=== PATIENT | female | born 1990 | race Caucasian/White ===

== ENCOUNTER 2020-12-24 10:36 | Emergency (ER) | payer OTHER ==
[~2020-12-24] VITALS: Ht 175.3 cm; Wt 90.7 kg
[~2020-12-24 10:36] MED LIST: CELEXA 20 MG TA20 MG; COLACE 100 MG100 MG; IBUPROFEN 600600 M1; IRON325; MACROBID 100 M100 M1 PO; NORCO 5-325 TA1 EACH; ONDANSETRON HCL4 M2 PO; PHENERGAN 25 MG25 M1 PO; TRAMADOL 50 MG50 MG; TRAMADOL 50 MG50 MG PO; TRINATE TABLET1 TAB; TUMS PO; ZANTAC 150MG T150 MG PO
[2020-12-24 11:04] LABS: URINE BILIRUBIN NEGATIVE (Negative); URINE BLOOD 2+ (Negative); URINE CLARITY CLEAR; URINE COLOR YELLOW; URINE GLUCOSE-RANDOM* NEGATIVE (Negative); URINE KETONES NEGATIVE (Negative); URINE LEUKOCYTES-REFLEX 1+ (Negative); URINE NITRITE-REFLEX NEGATIVE (Negative); URINE PROTEIN (DIPSTICK) NEGATIVE (Negative); URINE UROBILINOGEN 0.2 E.U./dl (0.2-1.0)
[2020-12-24 11:06] LABS: ABSOLUTE NEUTROPHILS 4.5 thou/uL (1.4-8.2); BASOPHILS 0.6 % (0.0-2.0); EOSINOPHILS 1.2 % (0.0-3.0); HEMATOCRIT 35.9 % (37.0-47.0); HEMOGLOBIN 12.2 gm/dL (12.0-15.0); MCH 30.3 pg (26.0-34.0); MCHC 34.1 g/dL (28.0-37.0); MCV 88.9 fL (80.0-100.0); MONOCYTES 5.9 % (1.0-8.0); PLATELET COUNT 360 thou/uL (150-400); POLYS 67.3 % (36.0-66.0); RBC 4.04 mil/uL (4.20-5.00); RDW 14.2 % (10.5-14.5); WBC 6.7 thou/uL (4.0-11.0)
[2020-12-24 11:16] LABS: CALCIUM 9.2 mg/dL (8.5-10.1); CREATININE 0.7 mg/dL (0.6-1.0); POTASSIUM 3.8 mmol/L (3.5-5.1)
[2020-12-24 11:22] LABS: ALBUMIN 4.4 g/dL (3.4-5.0); TOTAL BILIRUBIN 0.4 mg/dL (0.2-1.0)
[2020-12-24 11:25] LABS: CASTS None Seen /LPF (None Seen); SQUAMOUS 4-10 Moderate /LPF (0-3); URINE WBC-REFLEX None Seen /HPF (0-5)
[2020-12-24 11:26] LABS: BACTERIA-REFLEX 1-9 Few /HPF (None Seen); CRYSTALS None Seen /LPF (None Seen); URINE RBC None Seen /HPF (NONE SEEN)
[2020-12-24] MEDS ORDERED: OMEPRAZOLE40 MG PO (12:43)
[2020-12-24] MEDS ORDERED: CARAFATE 1 GM TA1 G1 PO (12:43)
[2020-12-24 12:44] VITALS: BP 122/79
== END 2020-12-24 13:01 | disposition home or self-care (01) ==
LOC: ER 10:36
PROVIDERS: Student in an Organized Health Care Education/Training Program
DX: K29.70 Gastritis, unspecified, without bleeding (principal); K58.9 Irritable bowel syndrome, unspecified; Z79.899 Other long term (current) drug therapy; Z88.0 Allergy status to penicillin; Z72.89 Other problems related to lifestyle